=== PATIENT | female | born 1990 | race Caucasian/White ===

== ENCOUNTER 2019-02-24 15:00 | Emergency (ER) | payer OTHER ==
[~2019-02-24] VITALS: Ht 177.8 cm; Wt 88.0 kg
[2019-02-24] MEDS ORDERED: APAP W/CODEINE1 TA2 PO (16:30)
[2019-02-24] MEDS ORDERED: MEDROLDOSEPACK PO (16:30)
[2019-02-24] MEDS ORDERED: ROBAXIN 750 MG750 MG PO (16:30)
[2019-02-24] MEDS ORDERED: LIDODERM1 EACH TRANSDERM (16:31)
[2019-02-24 16:43] VITALS: BP 138/79
== END 2019-02-24 16:44 | disposition home or self-care (01) ==
LOC: M.ERS 15:00
DX: M54.2 Cervicalgia (principal); Z88.0 Allergy status to penicillin